=== PATIENT | male | born 1960 | race Caucasian/White ===

== ENCOUNTER 2021-11-19 10:26 | Emergency (ER) | payer OTHER ==
[2021-11-19] MEDS ORDERED: Sulfameth/Trimethoprim DS 800-160mg TAB ONE (11:07)
[2021-11-19] MEDS ORDERED: Boostrix 0.5 ML (Tdap) VIAL (>/=7 yrs of age) ONE (11:07)
[2021-11-19] MEDS ORDERED: Lidocaine 1% (PF) 30 ML VIAL ONE (11:07)
[2021-11-19] MEDS ORDERED: Acetaminophen/Codeine 30-300mg Tablet ONE (12:16)
[2021-11-19] MEDS ORDERED: Bacitracin 1 PK ONE (12:16)
== END 2021-11-19 12:26 | disposition home or self-care (01) ==
LOC: BURERS 10:26
DX: S61.212A Laceration without foreign body of right middle finger without damage to nail, initial encounter (principal); Z23 Encounter for immunization; X58.XXXA Exposure to other specified factors, initial encounter
CPT/HCPCS: 12001; 90471; 90715; J2001